=== PATIENT | male | born 2000 | race Asian ===

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

== ENCOUNTER 2022-01-14 21:57 | Emergency (ER) | payer OTHER ==
[~2022-01-14] VITALS: Ht 182.9 cm; Wt 81.6 kg
[2022-01-14 23:02] VITALS: BP 137/87; TEMP 98.7
== END 2022-01-14 23:02 | disposition home or self-care (01) ==
LOC: ED 21:57
DX: J02.0 Streptococcal pharyngitis (principal); Z20.822 Contact with and (suspected) exposure to COVID-19; F17.210 Nicotine dependence, cigarettes, uncomplicated
CPT/HCPCS: 87635; 96372; 99283; J0696; J1885; U0003